=== PATIENT | male | born 1995 | race Caucasian/White ===

== ENCOUNTER 2018-01-13 16:57 | Emergency (ER) | payer MEDICAID, OTHER ==
[~2018-01-13] VITALS: Ht 170.2 cm; Wt 67.0 kg
[2018-01-13 17:10] VITALS: BP 144/78
[2018-01-13] MEDS ORDERED: HYDROcodone/APAP 5/325 TABLET PO STA (18:11)
[2018-01-13] MEDS ORDERED: HYDROcodone/APAP 5/325 TABLET ONE (18:14)
== END 2018-01-13 18:21 | disposition home or self-care (01) ==
LOC: ED 17:50
DX: K08.89 Other specified disorders of teeth and supporting structures (principal); F17.210 Nicotine dependence, cigarettes, uncomplicated
CPT/HCPCS: 99283

== ENCOUNTER 2018-01-23 19:01 | Emergency (ER) | payer MEDICAID ==
[~2018-01-23] VITALS: Ht 152.4 cm; Wt 67.7 kg
[2018-01-23 19:13] VITALS: BP 135/71
== END 2018-01-23 20:37 | disposition home or self-care (01) ==
LOC: ED 20:00
DX: K02.9 Dental caries, unspecified (principal); K08.89 Other specified disorders of teeth and supporting structures
CPT/HCPCS: 41800; 99283